=== PATIENT | female | born 1955 | race Hispanic/Latino ===

== ENCOUNTER 2016-09-02 11:32 | Day surgery (SDC) | payer BC ==
[~2016-09-02 11:32] MED LIST: ANCEF/STERILE WATER 2 GM/20 ML IV NR
[2016-09-02] MEDS ORDERED: VERSED IV NR (12:00)
[2016-09-02] MEDS ORDERED: NACL 0.9% 1000 ML 1,000 ML IV SCH (12:00)
[2016-09-02] MEDS ORDERED: PEPCID PO NR (12:00)
[2016-09-02] MEDS ORDERED: MARCAINE 0.25% INFILTRATI ONE ×2 (12:12→13:57)
--- NOTE | 2016-09-02 13:11 | Anesthesia Consultation ---
Anesthesia Consult and Med Hx Date of service: 09/02/16 - Airway Anesthetic Teeth Evaluation: Dentures ROM Head & Neck: Adequate Mental/Hyoid Distance: Adequate Mallampati Class: Class II Intubation Access Assessment: Probably Good - Pulmonary Exam CTA: Yes - Cardiac Exam Cardiac Exam: RRR - Pre-Operative Health Status ASA Pre-Surgery Classification: ASA3 Proposed Anesthetic Plan: General (no previous problems - for teeth surgery and delivery of baby) - Pulmonary Hx Smoking: Yes (1.5ppd for 43 yrs - now 1ppd) COPD: Yes - Cardiovascular System Hx Hypertension: Yes (pt has 3.2 cm abdominal aortic aneurysm) - Gastrointestinal Hx Gastroesophageal Reflux Disease: Yes - Additional Comments Anesthesia Medical History Comments: Hx [place] spotted fever - no complications
--- NOTE | 2016-09-02 13:12 | Anesthesia Day of Surgery ---
Anesthesia Day of Surgery - Day of Surgery Patient Examined: Yes Patient H&P Reviewed: Yes Patient is NPO: Yes
[2016-09-02] MEDS ORDERED: SUBLIMAZE ONE (13:14)
[2016-09-02] MEDS ORDERED: XYLOCAINE MPF 2% ONE (13:14)
[2016-09-02] MEDS ORDERED: DIPRIVAN 10 MG/ML IV ONE (13:14)
[2016-09-02] MEDS ORDERED: ZEMURON IV ONE (13:14)
[2016-09-02] MEDS ORDERED: ROBINUL ONE (13:56)
[2016-09-02] MEDS ORDERED: ZOFRAN ONE (13:56)
[2016-09-02] MEDS ORDERED: NEOSTIGMINE ONE (13:56)
[2016-09-02] MEDS ORDERED: DECADRON ONE (13:56)
[2016-09-02] MEDS ORDERED: NACL 0.9% IR ONE (13:57)
[2016-09-02] MEDS ORDERED: DILAUDID ONE (14:19)
--- NOTE | 2016-09-02 14:27 | Operative Report ---
Operative Report Operative Report: Date of procedure-09/02/2016 Preoperative diagnosis; biliary colic with gallstones postoperative diagnosis; same Operative procedure; laparoscopic cholecystectomy Anesthesia; Gen. endotracheal Surgeon; Slade Michele; Cristela Nazario Specimen gallbladder Blood loss Indications 60-year-old female presenting with epigastric and right upper quadrant pain and nausea. Ultrasound showed multiple gallstones. She is a chronic smoker and has has early signs of COPD. She was seen by [facility] [employer] and clear cleared for surgery. Findings flimsy adhesions between the right lobe of the liver and the anterior abdominal wall. Gallbladder she showed multiple gallstones and evidence of chronic cholecystitis. Cystic duct is of normal caliber. By that did not show any dietitian. Visualized part of the distal part of the stomach and proximal duodenum appeared normal. Procedure - after satisfactory induction of general endotracheal anesthesia abdomen was prepped and draped.-An infraumbilical vertical incision was made and a Veress needle was inserted into the pericardial cavity. After adequate, and Atkins, dioxide insufflation up to 15 mmHg a 5 mm trocar was inserted. Through this a 5 mm 30 angled scope was placed and under direct visualization 11 mm epigastric and the other 2 lateral ports were placed. Adhesions between the liver and the anterior abdominal wall muscles were taken down. Gallbladder was was held at the fundus and at the infundibulum by the assisting surgeon. Cystic the duct was well delineated, Callow's triangle was fully exposed. Clips were applied as cystic duct as far away from the cystic bile duct junction as possible and the cystic duct was divided. Cystic artery and the branches were independently identified clips were applied and divided. Gallbladder was removed from the liver bed by using the hook attached to cautery. No bleeding was encountered from the liver bed. Gallbladder was then retrieved into an Endo Catch bag and was pulled out through the epigastric trocar. Because of the large size of the stone in the incision was extended to accommodate the delivery of the gallbladder. Trocar was replaced liver bed was inspected and found to be hemostatically dry. The anterior rectus fascia at the epigastric trocar site was approximated with 0 Vicryls suture. Desufflation was done all the trochars were removed. All the skin incisions are closed with 4 4-0 Monocryl sutures. There was minimal blood loss and she tolerated the procedure well --
--- NOTE | 2016-09-02 14:31 | Post Operative Note ---
Pre-op diagnosis: Gallstones with biliary colic Post-op diagnosis: same Findings: mutiple gallstones, chronic cholecystitis Procedure: laparoscopic cholecystectomy Anesthesia: ROCÍOA Surgeon: LULA HULL Autism Teacher: STEVE CROSS Estimated blood loss: minimal Pathology: list (gallbladder) Specimen disposition: to lab Condition: stable Disposition: PACU
--- NOTE | 2016-09-02 14:34 | Discharge Summary ---
Short Stay Discharge Plan Weight Bearing Status: Full Weight Bearing Diet: regular Wound: open to air Follow up with: PRIMARY CARE,MD [Primary Care Provider] - 7 Days Prescriptions: Ondansetron [Zofran TAB] 4 mg PO Q8HR PRN #20 tablet PRN Reason: Nausea oxyCODONE /ACETAMINOPHEN [Percocet 5/325] 1 tab PO Q4HR PRN #20 tab PRN Reason: Pain , Severe (7-10) traMADol [Ultram 50 MG tab] 50 mg PO Q4HR PRN #20 tablet PRN Reason: Pain
[2016-09-02] MEDS ORDERED: DILAUDID IV PRN (14:39)
[2016-09-02] MEDS ORDERED: ZOFRAN IV PRN (14:39)
[2016-09-02] MEDS ORDERED: APRESOLINE ONE (15:19)
[2016-09-02] MEDS ORDERED: APRESOLINE IV PRN (15:22)
[2016-09-02] MEDS ORDERED: NORCO 5/325 PO PRN (15:30)
--- NOTE | 2016-09-02 15:30 | Post Anesthesia Evaluation ---
- Post Anesthesia Evaluation Patient Participated: Yes Airway Patent: Yes Stable Respiratory Function: Yes Nausea/Vomiting: No Temp > 96.8F: Yes Pain Manageable: Yes Adequeate Hydration: Yes Anesthesia Complications: No Block Receding Appropriately: Not Applicable Patient on Ventilator: No
[2016-09-02 16:25] VITALS: BP 106/54
[2016-09-02] MEDS ORDERED: PROVENTIL IH ONE (16:29)
== END 2016-09-02 17:40 | disposition home or self-care (01) ==
LOC: OR 11:32
PROVIDERS: ATTEND Surgery
DX: K80.64 Calculus of gallbladder and bile duct with chronic cholecystitis without obstruction (principal); K66.0 Peritoneal adhesions (postprocedural) (postinfection); J44.9 Chronic obstructive pulmonary disease, unspecified; F17.210 Nicotine dependence, cigarettes, uncomplicated; I10 Essential (primary) hypertension; K21.9 Gastro-esophageal reflux disease without esophagitis; Z98.890 Other specified postprocedural states; Z79.899 Other long term (current) drug therapy
CPT/HCPCS: 47562; 88304; J0360; J0690; J1100; J1170; J2250; J2405; J2704; J2710; J3010; J7030